=== PATIENT | female | born 1940 | race Caucasian/White ===

== ENCOUNTER 2017-04-08 14:36 | Outpatient (CLI) | payer MEDICARE, BC ==
--- NOTE | 2017-04-08 15:39 | MMO ---
BILATERAL DIGITAL SCREENING MAMMOGRAMS: Date: 04/08/17 HISTORY: 76-year-old female presents for digital screening mammogram. COMPARISON: 04/02/16, 04/01/15, 02/27/14, 01/29/13, and 01/18/12. FINDINGS: This patient's mammogram was interpreted with the assistance of computer-aided detection. Scattered areas of fibroglandular density are noted bilaterally. There are some scattered typically b enign calcifications. No direct or indirect evidence of malignancy. Appearance is stable. IMPRESSION: BIRADS 2: Benign Finding(s) Continue routine screening. POS: NOBLE
== END 2017-04-08 14:37 | disposition home or self-care (01) ==
LOC: MAMMO 14:36
PROVIDERS: ATTEND Family Medicine
DX: Z12.31 Encounter for screening mammogram for malignant neoplasm of breast (principal)
CPT/HCPCS: 77067; G0202

== ENCOUNTER 2018-04-15 07:53 | Outpatient (CLI) | payer MEDICARE, BC | END 2018-04-15 07:54 | disposition home or self-care (01) | LOC: BICMAMMO 07:53 | PROVIDERS: ATTEND Family Medicine | DX: Z12.31 Encounter for screening mammogram for malignant neoplasm of breast (principal) | CPT/HCPCS: 77063; 77067 ==

== ENCOUNTER 2018-05-06 12:55 | Outpatient (CLI) | payer MEDICARE, BC ==
--- NOTE | 2018-05-06 15:34 | CT ---
ABDOMEN AND PELVIC CT SCAN WITH IV CONTRAST: History: 77-year-old female with history of R10.9, abdominal pain. FINDINGS: The lung bases are clear. Status post cholecystectomy. The liver, pancreas, spleen, adrenal glands ar e unremarkable. No evidence for renal calculus or acute obstruction. Small hiatal hernia. Occasion al sigmoid colon diverticulosis without acute diverticulitis. IMPRESSION: Small hiatal hernia. Status post cholecystectomy. Minimal sigmoid colon diverticulosis without acute diverticulitis. No significant acute process. POS: SARAHH
== END 2018-05-06 12:56 | disposition home or self-care (01) ==
LOC: BICCT 12:55
PROVIDERS: ATTEND Internal Medicine Gastroenterology
DX: R10.9 Unspecified abdominal pain (principal); K44.9 Diaphragmatic hernia without obstruction or gangrene; K57.30 Diverticulosis of large intestine without perforation or abscess without bleeding; Z90.49 Acquired absence of other specified parts of digestive tract
CPT/HCPCS: 74177; 82565

== ENCOUNTER 2018-09-24 11:07 | Outpatient (CLI) | payer MEDICARE, BC ==
[~2018-09-24 11:07] MED LIST: ISOVUE-370 76%-LOCM 1 ML ONE
--- NOTE | 2018-09-24 13:58 | CT ---
CT ABDOMEN AND PELVIS WITH AND WITHOUT IV CONTRAST: 09/24/2018 PROVIDED CLINICAL HISTORY: Hematuria. COMPARISON: 05/06/2018 FINDINGS: The visualized lung bases are free of significant opacity. A small hiatal hernia is redemonstrated. There is no evidence for urinary tract calculi or hydronephrosis. There is a circumscribed area of f at density adjacent to the anterior aspect of the left kidney, in the mid portion, that is likely ref lective of an exophytic angiomyolipoma. This measures approximately 1.3 cm. There is no additional renal mass evident. The delayed images demonstrate no evidence for a filling defect involving the op acified renal collecting systems, ureters, or urinary bladder. The liver, spleen, pancreas, and adrenal glands appear unremarkable. Changes of prior cholecystectomy are seen. No bowel dilatation, inflammatory fat stranding, free fluid, or lymph node enlargement apparent. Sta tus post hysterectomy. The osseous structures demonstrate no concerning lytic or blastic lesions. Degenerative changes are seen at the lower thoracic spine. Scattered vascular calcifications are seen. IMPRESSION: 1. An etiology for the patient's hematuria is not evident on this study. 2. 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 POS: OFF
== END 2018-09-24 11:08 | disposition home or self-care (01) ==
LOC: BICCT 11:07
PROVIDERS: ATTEND Urology
DX: R31.29 Other microscopic hematuria (principal); Z87.440 Personal history of urinary (tract) infections
CPT/HCPCS: 74178; 82565; Q9966

== ENCOUNTER 2019-09-22 12:15 | Outpatient (CLI) | payer MEDICARE, BC ==
--- NOTE | 2019-09-23 09:20 | MMO ---
Bilateral MAMMO Bilat Screen DDI+MANOJ. CLINICAL HISTORY: Patient is 79 years old and is seen for screening. The patient has the following family history of breast cancer: mother. The patient has no personal history of cancer. VIEWS: The views performed were: bilateral craniocaudal with tomosynthesis and bilateral mediolateral oblique with tomosynthesis. FILMS COMPARED: The present examination has been compared to a prior imaging study performed at [facility] on 04/15/2018. This study has been interpreted with the assistance of computer-aided detection. MAMMOGRAM FINDINGS: There are scattered fibroglandular densities. right MLO will be repeated In the left breast, there are no suspicious masses, calcifications or areas of architectural distortion. IMPRESSION: FINDING IN THE RIGHT BREAST REQUIRES ADDITIONAL EVALUATION. ADDITIONAL IMAGING. THE RESULTS OF THIS EXAM WERE SENT TO THE PATIENT. ACR BI-RADS Category 0 - Incomplete: Need additional imaging evaluation. [facility] will notify the patient of the need for additional imaging services. MAMMOGRAPHY NOTE: 1. A negative mammogram report should not delay a biopsy if a dominant of clinically suspicious mass is present. 2. Approximately 10% to 15% of breast cancers are not detected by mammography. 3. Adenosis and dense breasts may obscure an underlying neoplasm. Reported by: NIKOLAI CERDA MD Electonically Signed: [id number]
== END 2019-09-22 12:16 | disposition home or self-care (01) ==
LOC: BICMAMMO 12:15
PROVIDERS: ATTEND Family Medicine
DX: Z12.31 Encounter for screening mammogram for malignant neoplasm of breast (principal); Z80.3 Family history of malignant neoplasm of breast
CPT/HCPCS: 77063; 77067

== ENCOUNTER 2019-09-23 08:21 | Outpatient (CLI) | payer MEDICARE, BC ==
--- NOTE | 2019-09-23 08:47 | MMO ---
Right Breast MAMMO Unilat Diag DDI RT+MANOJ. CLINICAL HISTORY: Patient is 79 years old and is seen for diagnostic exam. The patient has the following family history of breast cancer: mother. The patient has no personal history of cancer. VIEWS: The views performed were: right mediolateral oblique with tomosynthesis. FILMS COMPARED: The present examination has been compared to prior imaging studies performed at [facility] on 04/15/2018 and 09/22/2019. This study has been interpreted with the assistance of computer-aided detection. MAMMOGRAM FINDINGS: There are scattered fibroglandular densities. There are no suspicious masses, suspicious calcifications, or new areas of architectural distortion. IMPRESSION: THERE IS NO MAMMOGRAPHIC EVIDENCE OF MALIGNANCY. A ROUTINE FOLLOW-UP MAMMOGRAM IN 1 YEAR IS RECOMMENDED. THE RESULTS OF THIS EXAM WERE SENT TO THE PATIENT. ACR BI-RADS Category 1 - Negative MAMMOGRAPHY NOTE: 1. A negative mammogram report should not delay a biopsy if a dominant of clinically suspicious mass is present. 2. Approximately 10% to 15% of breast cancers are not detected by mammography. 3. Adenosis and dense breasts may obscure an underlying neoplasm. Reported by: NIKOLAI CERDA MD Electonically Signed: [id number]
== END 2019-09-23 08:22 | disposition home or self-care (01) ==
LOC: BICMAMMO 08:21
PROVIDERS: ATTEND Family Medicine
DX: R92.2 Inconclusive mammogram (principal)
CPT/HCPCS: 77065; G0279

== ENCOUNTER 2019-10-20 13:12 | Outpatient (CLI) | payer MEDICARE, BC ==
--- NOTE | 2019-10-20 13:59 | ULT ---
Bilateral renal ultrasound CLINICAL INDICATION: Angiomyolipoma left kidney. COMPARISON: CT abdomen on 09/24/2018 FINDINGS: Right kidney: There is no evidence of a renal mass, renal calculus, or hydronephrosis seen. The right kidney measures 10.3 cm x 4.8 cm. Left kidney: No renal mass is visualized on this examination. A fat density mass was seen in the ante rior aspect midportion left kidney on prior CT abdomen on 09/24/2018, but this lesion is not visualized on sonographic evaluation. No hydronephrosis or renal calculus is seen on the left, and th ere is no hydronephrosis.The left kidney measures 9.6 cm x 5.6 cm. Urinary bladder: Normal in appearance for degree of distention. Urinary bladder volume is 292 mL. IMPRESSION: 1. Normal-appearing bilateral kidneys without evidence of hydronephrosis. 2. No renal mass is visualized. The previously seen exophytic fat density mass anterior aspect midpor tion left kidney on prior CT exam is not seen on sonographic evaluation.
== END 2019-10-20 13:13 | disposition home or self-care (01) ==
LOC: BICULT 13:12
PROVIDERS: ATTEND Urology
DX: D17.71 Benign lipomatous neoplasm of kidney (principal)
CPT/HCPCS: 76770

== ENCOUNTER 2020-09-30 08:08 | Outpatient (CLI) | payer MEDICARE, BC | END 2020-09-30 08:09 | disposition home or self-care (01) | LOC: BICMAMMO 08:08 | PROVIDERS: ATTEND Family Medicine | DX: Z12.31 Encounter for screening mammogram for malignant neoplasm of breast (principal); Z80.3 Family history of malignant neoplasm of breast | CPT/HCPCS: 77063; 77067 ==

== ENCOUNTER 2020-10-07 15:26 | Outpatient (CLI) | payer MEDICARE, BC | END 2020-10-07 15:27 | disposition home or self-care (01) | LOC: BICULT 15:26 | PROVIDERS: ATTEND Urology | DX: R31.29 Other microscopic hematuria (principal); D17.71 Benign lipomatous neoplasm of kidney; Z87.440 Personal history of urinary (tract) infections | CPT/HCPCS: 76770 ==

== ENCOUNTER 2021-07-13 14:17 | Emergency (ER) | payer MEDICARE, BC ==
[2021-07-13] MEDS ORDERED: HYDROcodone/Acetaminophen 5/325 mg Tablet ONE (15:24)
== END 2021-07-13 17:32 | disposition home or self-care (01) ==
LOC: ERS 14:17
DX: S39.012A Strain of muscle, fascia and tendon of lower back, initial encounter (principal); S76.011A Strain of muscle, fascia and tendon of right hip, initial encounter; S09.90XA Unspecified injury of head, initial encounter; I48.91 Unspecified atrial fibrillation; E03.9 Hypothyroidism, unspecified; K21.9 Gastro-esophageal reflux disease without esophagitis; E78.5 Hyperlipidemia, unspecified; I10 Essential (primary) hypertension; Z79.899 Other long term (current) drug therapy; W19.XXXA Unspecified fall, initial encounter
CPT/HCPCS: 70450; 72100; 72125

== ENCOUNTER 2021-08-25 13:12 | Outpatient (CLI) | payer MEDICARE, BC | END 2021-08-25 13:13 | disposition home or self-care (01) | LOC: BICRAD 13:12 | PROVIDERS: ATTEND Family Medicine | DX: M54.6 Pain in thoracic spine (principal); M47.814 Spondylosis without myelopathy or radiculopathy, thoracic region | CPT/HCPCS: 72072 ==

== ENCOUNTER 2021-10-11 13:14 | Outpatient (CLI) | payer MEDICARE, BC | END 2021-10-11 13:15 | disposition home or self-care (01) | LOC: BICMAMMO 13:14 | PROVIDERS: ATTEND Family Medicine | DX: Z12.31 Encounter for screening mammogram for malignant neoplasm of breast (principal); Z80.3 Family history of malignant neoplasm of breast | CPT/HCPCS: 77063; 77067 ==

== ENCOUNTER 2021-12-25 10:12 | Emergency (ER) | payer OTHER, MEDICARE, BC ==
[2021-12-25] MEDS ORDERED: Acetaminophen 500 MG TAB ONE (10:31)
== END 2021-12-25 11:40 | disposition home or self-care (01) ==
LOC: ERS 10:12
DX: M54.50 Low back pain, unspecified (principal); E03.9 Hypothyroidism, unspecified; K21.9 Gastro-esophageal reflux disease without esophagitis; E78.5 Hyperlipidemia, unspecified; E78.00 Pure hypercholesterolemia, unspecified; I10 Essential (primary) hypertension; Z79.899 Other long term (current) drug therapy; Z79.82 Long term (current) use of aspirin; W01.0XXA Fall on same level from slipping, tripping and stumbling without subsequent striking against object, initial encounter
CPT/HCPCS: 72100

== ENCOUNTER 2022-01-30 15:46 | Outpatient (CLI) | payer MEDICARE, BC | END 2022-01-30 15:47 | disposition home or self-care (01) | LOC: BICRAD 15:46 | PROVIDERS: ATTEND Specialist | DX: M19.011 Primary osteoarthritis, right shoulder (principal) ==

== ENCOUNTER 2023-07-02 12:53 | Outpatient (CLI) | payer MEDICARE | END 2023-07-02 12:54 | disposition home or self-care (01) | LOC: MRI 12:53 | PROVIDERS: ATTEND Specialist | DX: S22.000A Wedge compression fracture of unspecified thoracic vertebra, initial encounter for closed fracture (principal); M51.34 Other intervertebral disc degeneration, thoracic region; M51.24 Other intervertebral disc displacement, thoracic region | CPT/HCPCS: 72146 ==

== ENCOUNTER 2024-02-15 12:42 | Emergency (ER) | payer MEDICARE ==
[2024-02-15] MEDS ORDERED: Boostrix 0.5 ML (Tdap) VIAL (>/=7 yrs of age) ONE (13:09)
== END 2024-02-15 13:01 | disposition home or self-care (01) ==
LOC: ERS 12:42
DX: S61.411A Laceration without foreign body of right hand, initial encounter (principal); E03.9 Hypothyroidism, unspecified; I10 Essential (primary) hypertension; E78.00 Pure hypercholesterolemia, unspecified; K21.9 Gastro-esophageal reflux disease without esophagitis; Z23 Encounter for immunization; Z79.899 Other long term (current) drug therapy; Z79.890 Hormone replacement therapy; X58.XXXA Exposure to other specified factors, initial encounter
CPT/HCPCS: 90471; 90715

== ENCOUNTER 2025-03-26 09:59 | Outpatient (CLI) | payer MEDICARE | END 2025-03-26 10:00 | disposition home or self-care (01) | LOC: BICRAD 09:59 | PROVIDERS: ATTEND Family Medicine | DX: R07.89 Other chest pain (principal) ==